=== PATIENT | female | born 1990 | race Caucasian/White ===

== ENCOUNTER 2021-10-31 11:01 | Inpatient (IN) ==
[2021-10-31] MEDS ORDERED: SODIUM CHLORIDE 0.9% 1000ML 2,000 ML IV ONE (11:42)
[2021-10-31] MEDS ORDERED: ONDANSETRON INJ 2 MG/ML 2 ML VIAL IV STA (11:42)
[2021-10-31] MEDS ORDERED: KETOROLAC TROMETHAMINE 15 MG/ML VIAL IV ONE (11:42)
--- NOTE | 2021-10-31 11:44 | Emergency Department Note ---
Impression & Plan Meningitis, Cystitis, Abdominal pain, Headache ED Provider Note NAME: JONATHAN FERNANDEZ AGE: 31 SEX: F : 1990 ARRIVES VIA: Walk-In INFORMANT: Patient ED PROVIDER(S): Kerwin Larson DO CHIEF COMPLAINT: headache HPI: Patient is a 31-year-old female who presents to the ER for not feeling well. She notes her symptoms started about 5 days ago. She has been feeling hot and cold. She notes that she has been having headaches and vomiting. She feels very dizzy. The last time she had some like this she was positive for influenza A. She admits to runny nose but no cough or shortness of breath. No dysuria, urgency, or frequency. Belly pain is diffuse throughout the entire abdomen. Pain is a 10 out of 10. No other exacerbating or remitting factors. Light makes her headache worse. She also notes that she feels off balance when she gets up and moves around. This resolves with rest. ROS: See above HPI for pertinent positives & negatives. A total of 10 systems reviewed and were otherwise negative. PAST MEDICAL HISTORY:See Below PAST SURGICAL HISTORY:See Below FAMILY HISTORY:See Below SOCIAL HISTORY:See Below HOME MEDICATIONS:See Below ALLERGIES:See Below VITALS:See Below PHYSICAL EXAMINATION: GENERAL: Sitting up in bed, alert, disheveled, mild distress holding her head EYE EXAM: normal conjunctiva. PERRL and EOM's grossly intact. OROPHARYNX: no exudate, no erythema, lips, buccal mucosa, and tongue normal and mucous membranes are moist NECK: supple, no nuchal rigidity, no adenopathy, non-tender LUNGS: Clear to auscultation. Normal chest wall mechanics HEART: no murmurs, S1 normal and S2 normal ABDOMEN: abdomen soft, non-tender, normo-active bowel sounds, no masses, no rebound or guarding. BACK: Back is symmetrical on inspection and there is no deformity, no midline tenderness, no CVA tenderness. SKIN: no rashes and no bruising UPPER EXTREMITIES: upper extremities are grossly normal. LOWER EXTREMITIES: No pitting edema. NEURO EXAM: Normal sensorium, cranial nerves II-XII intact, normal speech, no weakness of arms, no weakness of legs. No drift. Finger to nose intact. Gross sensation intact. MEDICAL DECISION MAKING: Patient is a 31-year-old female who presents the ER for fever, headache, feeling dizzy associated with severe belly pain and vomiting. Symptoms have been present for the past 5 days. IV was established blood work was obtained. Labs show no significant leukocytosis or anemia. BMP along with LFTs bilirubin shows slightly elevated glucose at 109 and a T bili elevated at 2. LFTs and lipase are unremarkable. UA was contaminated with multiple epithelial cells with greater than [address] did show some inflammation. Patient was covered with 2 g of Rocephin as well as IV vancomycin and Decadron for possible meningitis. LP was performed by myself at bedside and showed about 70 white cells and elevated protein and I favor that this is likely viral in nature. She was given morphine. Discussed with the hospitalist for further evaluation. Triage Nursing notes reviewed. Limited review of prior medical records performed Vital Signs: reviewed and remarkable for no significant abnormalities Differential diagnosis: Differential Diagnosis includes but is not limited to headache, tension headache, cluster headache, migraine, subarachnoid hemorrhage, meningitis, mass, central venous thrombus, concussion, trauma and epidural/subdural hemorrhage. ER treatment provided: See below Diagnostics interpreted by me: Cardiac Monitoring: An order was placed for continuous cardiac monitoring. The monitor shows a rate of 90 with sinus rhythm. Laboratory studies: As stated above and show below. Imaging studies: CT abdomen pelvis was unremarkable CT head was negative Consultation(s): Discussed with [place] for further evaluation Procedures: none Critical Care: I have personally spent 32 minutes of critical care time in the direct management of this patient. This includes bedside care, interpretation of diagnostic studies, and testing, discussion with consultants, patient, and family members, and other required patient management activities. This 32 minutes is in excess of all separately billable procedures. Past Med/Surg History Social History Smoking Status: Never smoker Preferred Language: Turkish Feels Safe at Home: Yes Home Meds Home Medications Medication Instructions Recorded Confirmed No Known Home Medications 10/31/21 10/31/21 Results & Data (ED) Vital Signs Vital Signs - 24 hr 10/31/21 11:15 10/31/21 13:24 10/31/21 15:22 Temperature 36.9 C 37.7 C H 37.9 C H Temperature Source Temporal Artery Scan Oral Oral Pulse Rate 92 H Pulse Rate [Finger] 74 91 H Pulse Rhythm [Finger] Regular Pulse Strength [Finger] Normal Respiratory Rate 18 21 Respiratory Effort / Characteristics Non-Labored Spontaneous Non-Labored Respiratory Depth Normal Normal Respiratory Pattern Regular Regular Blood Pressure 112/73 Blood Pressure [Right Arm] 110/60 110/60 Blood Pressure Mean 86 Blood Pressure Mean [Right Arm] 76 76 Blood Pressure Position Sitting Blood Pressure Position [Right Arm] Lying Pulse Oximetry 99 97 99 Oxygen Delivery Method Room Air Room Air Room Air Sepsis Recent Fever Within 48 Hours Yes Sepsis New/Unexplained Change in Mental Status No Sepsis Action Taken by Nursing No Action Required Laboratory Data Result diagrams: 10/31/21 12:00 10/31/21 12:00 Lab Results 10/31/21 10/31/21 10/31/21 Range/Units 12:00 12:00 12:05 WBC 8.82 (4.8-10.8) K/ul RBC 4.46 (3.93-5.22) M/uL Hgb 13.0 (12.0-16.0) g/dl POC Hgb (12.0-16.0) g/dl Hct 40.2 (34.1-44.9) % POC Hct (37-47) % MCV 90.1 (80.0-100.0) fL MCH 29.1 (25.0-34.0) pg MCHC 32.3 (32.0-36.0) g/dL RDW Std Deviation 40.9 (36.4-46.3) fL RDW Coeff of Meek 12.5 (11.5-14.5) % Plt Count 155 (130-400) K/uL MPV 11.6 (9.4-12.3) fL Immature Gran % (Auto) 0.3 % Neut % (Auto) 93.7 % Lymph % (Auto) 4.1 % Polk % (Auto) 1.7 % Eos % (Auto) 0.1 % Baso % (Auto) 0.1 % Neut # (Auto) 8.26 H (1.4-6.5) K/uL Lymph # (Auto) 0.36 L (1.2-3.4) K/uL Polk # (Auto) 0.15 L (0.24-0.82) K/uL Eos # (Auto) 0.01 (0-0.50) K/uL Baso # (Auto) 0.01 (0-0.2) K/uL Immature Gran # (Auto) 0.03 H (0.00-0.02) K/uL POC Sodium (135-144) mmol/L Sodium 140 (136-145) mmol/L POC Potassium (3.3-5.0) mmol/L Potassium 3.7 (3.5-5.1) mmol/L POC Chloride (101-112) mmol/L Chloride 105 (98-107) mmol/L Carbon Dioxide 26 (21-32) mmol/L POC Total CO2 (24-31) mmol/L Anion Gap 9 (3-11) POC Anion Gap (16-25) mmol/L POC BUN (7-18) mg/dl BUN 17 (6-23) mg/dl Creatinine 0.69 (0.6-1.2) mg/dl POC Creatinine (0.6-1.3) mg/dl Est Cr Clr Drug Dosing 100.5 ml/min Est GFR ( Amer) 132.6 ml/min Est GFR (Non-Af Amer) 114.4 ml/min BUN/Creatinine Ratio 24.6 H (10-20) Glucose 109 H (70-99(Fasting)) mg/dl POC Glucose (other) (70-99) mg/dl Calcium 9.0 (8.5-10.1) mg/dl POC Ioniz Calcium Erickson (1.12-1.32) mmol/l Total Bilirubin 2.0 H (0.2-1.0) mg/dl AST 17 (13-39) U/L ALT 10 (7-52) U/L Alkaline Phosphatase 39 (34-104) U/L Total Protein 6.7 (6.0-8.3) gm/dl Albumin 4.5 (3.4-5.0) gm/dl Globulin 2.2 L (2.5-4.0) gm/dl Albumin/Globulin Ratio 2.0 (0.9-2) Lipase 17 (11-82) U/L Urine Color Urine Appearance (Clear) Urine pH (4.5-7.5) Ur Specific [place] (1.000-1.030) Urine Protein (Negative) Urine Glucose (UA) (Negative) Urine Ketones (Negative) Urine Blood (Negative) Urine Nitrite (Negative) Urine Bilirubin (Negative) Urine Urobilinogen (Negative) Ur Leukocyte Esterase (Negative) Urine WBC (Auto) (0-5) /hpf Urine RBC (Auto) (0-4) /hpf U Hyaline Cast (Auto) (0-5) /lpf U Epithel Cells (Auto) (0-5) /lpf Urine Bacteria (Auto) (Negative) Ur Renal Epithelial Cell Urine Test (Negative) Fluid Comment CSF Appearance CSF Color Xanthrochromic CSF WBC (0-5) /uL CSF RBC (0-) /uL CSF Cell Count Tube # CSF Mononuclear WBCs % CSF Mononuclear WBCs % % CSF Polynuclear WBCs % % CSF Chemistry Tube # CSF Glucose (40-70) mg/dl CSF Total Protein (15-45) mg/dl SARS-CoV-2, RNA, NAAT NEGATIVE (NEGATIVE) 10/31/21 10/31/21 10/31/21 Range/Units 12:10 12:10 12:11 WBC (4.8-10.8) K/ul RBC (3.93-5.22) M/uL Hgb (12.0-16.0) g/dl POC Hgb 13.6 (12.0-16.0) g/dl Hct (34.1-44.9) % POC Hct 40 (37-47) % MCV (80.0-100.0) fL MCH (25.0-34.0) pg MCHC (32.0-36.0) g/dL RDW Std Deviation (36.4-46.3) fL RDW Coeff of Meek (11.5-14.5) % Plt Count (130-400) K/uL MPV (9.4-12.3) fL Immature Gran % (Auto) % Neut % (Auto) % Lymph % (Auto) % Polk % (Auto) % Eos % (Auto) % Baso % (Auto) % Neut # (Auto) (1.4-6.5) K/uL Lymph # (Auto) (1.2-3.4) K/uL Polk # (Auto) (0.24-0.82) K/uL Eos # (Auto) (0-0.50) K/uL Baso # (Auto) (0-0.2) K/uL Immature Gran # (Auto) (0.00-0.02) K/uL POC Sodium 141 (135-144) mmol/L Sodium (136-145) mmol/L POC Potassium 3.7 (3.3-5.0) mmol/L Potassium (3.5-5.1) mmol/L POC Chloride 103 (101-112) mmol/L Chloride (98-107) mmol/L Carbon Dioxide (21-32) mmol/L POC Total CO2 25 (24-31) mmol/L Anion Gap (3-11) POC Anion Gap 17.0 (16-25) mmol/L POC BUN 16 (7-18) mg/dl BUN (6-23) mg/dl Creatinine (0.6-1.2) mg/dl POC Creatinine 0.8 (0.6-1.3) mg/dl Est Cr Clr Drug Dosing ml/min Est GFR ( Amer) ml/min Est GFR (Non-Af Amer) ml/min BUN/Creatinine Ratio (10-20) Glucose (70-99(Fasting)) mg/dl POC Glucose (other) 117 H (70-99) mg/dl Calcium (8.5-10.1) mg/dl POC Ioniz Calcium Erickson 1.09 L (1.12-1.32) mmol/l Total Bilirubin (0.2-1.0) mg/dl AST (13-39) U/L ALT (7-52) U/L Alkaline Phosphatase (34-104) U/L Total Protein (6.0-8.3) gm/dl Albumin (3.4-5.0) gm/dl Globulin (2.5-4.0) gm/dl Albumin/Globulin Ratio (0.9-2) Lipase (11-82) U/L Urine Color Yellow Urine Appearance Turbid A (Clear) Urine pH 8.5 H (4.5-7.5) Ur Specific [place] 1.020 (1.000-1.030) Urine Protein Negative (Negative) Urine Glucose (UA) Negative (Negative) Urine Ketones 3+ H (Negative) Urine Blood Negative (Negative) Urine Nitrite Negative (Negative) Urine Bilirubin Negative (Negative) Urine Urobilinogen Negative (Negative) Ur Leukocyte Esterase Negative (Negative) Urine WBC (Auto) >30 H (0-5) /hpf Urine RBC (Auto) 0-4 (0-4) /hpf U Hyaline Cast (Auto) 1-5 (0-5) /lpf U Epithel Cells (Auto) 10-20 H (0-5) /lpf Urine Bacteria (Auto) 1+ H (Negative) Ur Renal Epithelial Cell Not Reportable Urine Test Negative (Negative) Fluid Comment CSF Appearance CSF Color Xanthrochromic CSF WBC (0-5) /uL CSF RBC (0-) /uL CSF Cell Count Tube # CSF Mononuclear WBCs % CSF Mononuclear WBCs % % CSF Polynuclear WBCs % % CSF Chemistry Tube # CSF Glucose (40-70) mg/dl CSF Total Protein (15-45) mg/dl SARS-CoV-2, RNA, NAAT (NEGATIVE) 10/31/21 10/31/21 Range/Units 13:58 13:58 WBC (4.8-10.8) K/ul RBC (3.93-5.22) M/uL Hgb (12.0-16.0) g/dl POC Hgb (12.0-16.0) g/dl Hct (34.1-44.9) % POC Hct (37-47) % MCV (80.0-100.0) fL MCH (25.0-34.0) pg MCHC (32.0-36.0) g/dL RDW Std Deviation (36.4-46.3) fL RDW Coeff of Meek (11.5-14.5) % Plt Count (130-400) K/uL MPV (9.4-12.3) fL Immature Gran % (Auto) % Neut % (Auto) % Lymph % (Auto) % Polk % (Auto) % Eos % (Auto) % Baso % (Auto) % Neut # (Auto) (1.4-6.5) K/uL Lymph # (Auto) (1.2-3.4) K/uL Polk # (Auto) (0.24-0.82) K/uL Eos # (Auto) (0-0.50) K/uL Baso # (Auto) (0-0.2) K/uL Immature Gran # (Auto) (0.00-0.02) K/uL POC Sodium (135-144) mmol/L Sodium (136-145) mmol/L POC Potassium (3.3-5.0) mmol/L Potassium (3.5-5.1) mmol/L POC Chloride (101-112) mmol/L Chloride (98-107) mmol/L Carbon Dioxide (21-32) mmol/L POC Total CO2 (24-31) mmol/L Anion Gap (3-11) POC Anion Gap (16-25) mmol/L POC BUN (7-18) mg/dl BUN (6-23) mg/dl Creatinine (0.6-1.2) mg/dl POC Creatinine (0.6-1.3) mg/dl Est Cr Clr Drug Dosing ml/min Est GFR ( Amer) ml/min Est GFR (Non-Af Amer) ml/min BUN/Creatinine Ratio (10-20) Glucose (70-99(Fasting)) mg/dl POC Glucose (other) (70-99) mg/dl Calcium (8.5-10.1) mg/dl POC Ioniz Calcium Erickson (1.12-1.32) mmol/l Total Bilirubin (0.2-1.0) mg/dl AST (13-39) U/L ALT (7-52) U/L Alkaline Phosphatase (34-104) U/L Total Protein (6.0-8.3) gm/dl Albumin (3.4-5.0) gm/dl Globulin (2.5-4.0) gm/dl Albumin/Globulin Ratio (0.9-2) Lipase (11-82) U/L Urine Color Urine Appearance (Clear) Urine pH (4.5-7.5) Ur Specific [place] (1.000-1.030) Urine Protein (Negative) Urine Glucose (UA) (Negative) Urine Ketones (Negative) Urine Blood (Negative) Urine Nitrite (Negative) Urine Bilirubin (Negative) Urine Urobilinogen (Negative) Ur Leukocyte Esterase (Negative) Urine WBC (Auto) (0-5) /hpf Urine RBC (Auto) (0-4) /hpf U Hyaline Cast (Auto) (0-5) /lpf U Epithel Cells (Auto) (0-5) /lpf Urine Bacteria (Auto) (Negative) Ur Renal Epithelial Cell Urine Test (Negative) Fluid Comment CSF Appearance Clear CSF Color Colorless Xanthrochromic No xanthochromia CSF WBC 67 H* (0-5) /uL CSF RBC 0 (0-) /uL CSF Cell Count Tube # 3 CSF Mononuclear WBCs 100.0 % CSF Mononuclear WBCs % % CSF Polynuclear WBCs % % CSF Chemistry Tube # 1 CSF Glucose 54 (40-70) mg/dl CSF Total Protein 102.7 H (15-45) mg/dl SARS-CoV-2, RNA, NAAT (NEGATIVE) Administered Medications Discontinued Medications Dexamethasone Sodium Phosphate (DexamethasonePf 10 Mg/Ml Vial) 10 mg IV NOW ONE Stop: 10/31/21 14:59 Last Admin: 10/31/21 15:27 Dose: 10 mg Documented By: KATELYN Sodium Chloride (Nss 1000ml) 2,000 mls @ 999 mls/hr IV .Q2H1M ONE Stop: 10/31/21 13:42 Last Infusion: 10/31/21 14:11 Dose: 0 mls/hr Documented By: Admin: 10/31/21 12:16 Dose: 999 mls/hr Documented By: CLYDE Ceftriaxone Sodium (Rocephin) 2,000 mg in 70 mls @ 140 mls/hr IV NOW STA Stop: 10/31/21 14:43 Last Infusion: 10/31/21 15:37 Dose: 0 mls/hr Documented By: Admin: 10/31/21 14:38 Dose: 140 mls/hr Documented By: CLYDE Ioversol (Optiray 300 100ml) 95 ml IV ONCE ONE Stop: 10/31/21 12:49 Last Admin: 10/31/21 12:48 Dose: 95 ml Documented By: JORGE ALBERTO Ketorolac Tromethamine (Ketorolac Tromethamine 15 Mg/Ml Vial) 15 mg IV NOW ONE Stop: 10/31/21 11:43 Last Admin: 10/31/21 12:15 Dose: 15 mg Documented By: CLYDE Lidocaine HCl (Lidocaine 1% Local 20 Ml Vial) Confirm Administered Dose 20 ml .ROUTE .STK-MED ONE Stop: 10/31/21 13:53 Last Admin: 10/31/21 13:55 Dose: 20 ml Documented By: CLYDE Morphine Sulfate (Morphine Sulfate 4 Mg/Ml 1 Ml Carp\Vial) 4 mg IV NOW STA Stop: 10/31/21 14:59 Last Admin: 10/31/21 15:27 Dose: 4 mg Documented By: KATELYN Ondansetron HCl (Ondansetron Inj 2 Mg/Ml 2 Ml Vial) 4 mg IV NOW STA Stop: 10/31/21 11:43 Last Admin: 10/31/21 12:15 Dose: 4 mg Documented By: KTS Imaging Data Radiologist's Impression: Head CT 10/31/21 11:[address] DOSE: HISTORY: Headache. TECHNIQUE: Multiaxial CT images of the head were performed without the use of intravenous contrast. Automated exposure control was utilized for this study. A dose lowering technique was utilized adhering to the principles of ALARA. Comparison: None. Findings: The paranasal sinuses and mastoid air cells are clear. The calvarium and skull base are intact. The ventricles and sulci are within normal limits. There is no mass, hematoma, midline shift, or acute infarct. Impression: No acute intracranial abnormality. ACT 112: Negative or not required by law. Electronically signed by: Dillon Mandujano M.D. 10/31/2021 12:58 PM Abdomen/Pelvis CT 10/31/21 11:[address] WITH IV CONTRAST CT DOSE: 1072.12 mGy.cm HISTORY: Acute lower abdominal pain lower abd pain TECHNIQUE: Multiaxial CT images of the abdomen and pelvis were performed following the IV administration of 95 cc of Optiray, A dose lowering technique was utilized adhering to the principles of ALARA. COMPARISON STUDY: None. FINDINGS: Nonspecific subcarinal and bilateral hilar adenopathy with lymph nodes measuring up to 10 to 11 mm in short axis. The lung bases are generally clear. No pneumatosis or pneumoperitoneum. Unremarkable spleen, pancreas, contracted gallbladder and adrenal glands. Periportal edema is likely secondary to overhydration. There is patency of the hepatic and portal veins. The liver is within normal limits. Symmetric enhancement of the kidneys. No hydronephrosis. 1.1 cm cyst within the superior pole right kidney. No hydronephrosis. Circumferential urinary bladder wall thickening with partial distention. Unremarkable uterus. Follicular changes of the ovaries. Aorta and IVC are unremarkable. No lymphadenopathy identified. No bowel obstruction. Mild colonic fecal retention. Partial distention with wall thickening involves the majority of the large bowel. Noninflamed appendix. Unremarkable soft tissues. No acute fracture. IMPRESSION: 1. No bowel obstruction or pneumoperitoneum. 2. Normal appendix. 3. Mild wall thickening throughout the majority of the colon is likely secondary to partial distention. A mild nonspecific colitis is considered less likely. 4. Urinary bladder wall thickening with partial distention. Correlate with urinalysis. 5. Nonspecific mild mediastinal and bilateral hilar lymphadenopathy. ACT 112: Negative or not required by law. The above report was generated using voice recognition software. It may contain grammatical, syntax or spelling errors. Electronically signed by: Arvin Brink M.D. 10/31/2021 1:47 PM Chest X-Ray 10/31/21 13:57 XR chest 1V portable CLINICAL HISTORY: weak TECHNIQUE: Single frontal radiograph of the chest was obtained. Comparison: None available at the time of this dictation. FINDINGS: No lines and tubes are seen. The cardiomediastinal silhouette is normal. The lungs are clear. No evidence of pleural effusion or pneumothorax. IMPRESSION: No acute chest disease. ACT 112: Negative or not required by law. Electronically signed by: Aníbal Pierce M.D. 10/31/2021 2:18 PM Discharge Plan Visit Data Chief Complaint: Illness Stated Complaint: PUKING, DIZZY, CANT WALK, HEADACHE ED Provider: Kerwin Larson Discharge Problem: Meningitis, Cystitis, Abdominal pain, Headache Forms Stand Alone Forms: [employer] Prescriptions Prescriptions: No Action No Known Home Medications Referrals Referrals: PCP,NO [Primary Care Provider] -
[2021-10-31 12:23] LABS: iSTAT Creatinine 0.8 mg/dl (0.6-1.3); iSTAT Hemoglobin 13.6 g/dl (12.0-16.0); iSTAT Ionized Calcium 1.09 mmol/l (1.12-1.32); iSTAT Potassium 3.7 mmol/L (3.3-5.0)
[2021-10-31 12:31] LABS: Hematocrit (blood only) 40.2 % (34.1-44.9); Mean Corpuscular Hemoglobin 29.1 pg (25.0-34.0); Mean Corpuscular Hgb Conc 32.3 g/dL (32.0-36.0); Mean Corpuscular Volume 90.1 fL (80.0-100.0); Mean Platelet Volume 11.6 fL (9.4-12.3); Platelet Count 155 K/uL (130-400); RDW Coefficient of Variation 12.5 % (11.5-14.5); RDW Standard Deviation 40.9 fL (36.4-46.3); Red Blood Count 4.46 M/uL (3.93-5.22); White Blood Count 8.82 K/ul (4.8-10.8)
[2021-10-31 12:47] LABS: Appearance Urine Turbid (Clear); Bacteria Urine Automated 1+ (Negative); Bilirubin Urine Negative (Negative); Blood Urine Negative (Negative); Color Urine Yellow; Glucose Urine UA Negative (Negative); Ketones Urine 3+ (Negative); Leukocyte Esterase Urine Negative (Negative); Nitrite Urine Negative (Negative); Protein Urine Negative (Negative); RBC Urine Automated 0-4 /hpf (0-4); Urobilinogen Urine Negative (Negative); pH Urine 8.5 (4.5-7.5)
[2021-10-31] MEDS ORDERED: OPTIRAY 300 100mL IV ONE (12:48)
[2021-10-31 12:58] LABS: Basophils # (auto) 0.01 K/uL (0-0.2); Basophils % (auto) 0.1 %; Eosinophils # (auto) 0.01 K/uL (0-0.50); Eosinophils % (auto) 0.1 %; Immature Granulocytes # (auto) 0.03 K/uL (0.00-0.02); Immature Granulocytes % (auto) 0.3 %; Lymphocytes # (auto) 0.36 K/uL (1.2-3.4); Lymphocytes % (auto) 4.1 %; Monocytes # (auto) 0.15 K/uL (0.24-0.82); Monocytes % (auto) 1.7 %; Neutrophils # (auto) 8.26 K/uL (1.4-6.5); Neutrophils % (auto) 93.7 %
--- NOTE | 2021-10-31 13:00 | CT Scan Report ---
HEAD CT NONCONTRAST CT DOSE: HISTORY: Headache. TECHNIQUE: Multiaxial CT images of the head were performed without the use of intravenous contrast. A utomated exposure control was utilized for this study. A dose lowering technique was utilized adheri ng to the principles of ALARA. Comparison: None. Findings: The paranasal sinuses and mastoid air cells are clear. The calvarium and skull base are int act. The ventricles and sulci are within normal limits. There is no mass, hematoma, midline shift, or acute infarct. Impression: No acute intracranial abnormality. ACT 112: Negative or not required by law. Electronically signed by: Dillon Mandujano M.D. 10/31/2021 12:58 PM
[2021-10-31 13:05] LABS: Albumin Level 4.5 gm/dl (3.4-5.0); BUN Creatinine Ratio 24.6 (10-20); Creatinine Clr Calc Pharmacy 100.5 ml/min; Est GFR (African American) 132.6 ml/min; Est GFR (Non-African American) 114.4 ml/min; Globulin 2.2 gm/dl (2.5-4.0); Potassium 3.7 mmol/L (3.5-5.1); Total Protein 6.7 gm/dl (6.0-8.3)
[2021-10-31 13:16] LABS: WBC Urine Automated >30 /hpf (0-5)
[2021-10-31 13:31] LABS: Pregnancy Test, Urine Negative (Negative)
--- NOTE | 2021-10-31 13:49 | CT Scan Report ---
ABDOMEN AND PELVIS CT WITH IV CONTRAST CT DOSE: 1072.12 mGy.cm HISTORY: Acute lower abdominal pain lower abd pain TECHNIQUE: Multiaxial CT images of the abdomen and pelvis were performed following the IV administrat ion of 95 cc of Optiray, A dose lowering technique was utilized adhering to the principles of ALARA. COMPARISON STUDY: None. FINDINGS: Nonspecific subcarinal and bilateral hilar adenopathy with lymph nodes measuring up to 10 t o 11 mm in short axis. The lung bases are generally clear. No pneumatosis or pneumoperitoneum. Unremarkable spleen, pancreas, contracted gallbladder and adrenal glands. Periportal edema is likely secondary to overhydration. There is patency of the hepatic and portal veins. The liver is within nor mal limits. Symmetric enhancement of the kidneys. No hydronephrosis. 1.1 cm cyst within the superior pole right k idney. No hydronephrosis. Circumferential urinary bladder wall thickening with partial distention. Un remarkable uterus. Follicular changes of the ovaries. Aorta and IVC are unremarkable. No lymphadenopa thy identified. No bowel obstruction. Mild colonic fecal retention. Partial distention with wall thickening involves the majority of the large bowel. Noninflamed appendix. Unremarkable soft tissues. No acute fracture. IMPRESSION: 1. No bowel obstruction or pneumoperitoneum. 2. Normal appendix. 3. Mild wall thickening throughout the majority of the colon is likely secondary to partial distentio n. A mild nonspecific colitis is considered less likely. 4. Urinary bladder wall thickening with partial distention. Correlate with urinalysis. 5. Nonspecific mild mediastinal and bilateral hilar lymphadenopathy. ACT 112: Negative or not required by law. The above report was generated using voice recognition software. It may contain grammatical, syntax o r spelling errors. Electronically signed by: Arvin Brink M.D. 10/31/2021 1:47 PM
[2021-10-31] MEDS ORDERED: LIDOCAINE 1% LOCAL 20 ML VIAL ONE (13:52)
[2021-10-31] MEDS ORDERED: cefTRIAXone SODIUM 2,000 MG/70 ML BAG IV STA (14:14)
--- NOTE | 2021-10-31 14:19 | XRay Report ---
XR chest 1V portable CLINICAL HISTORY: weak TECHNIQUE: Single frontal radiograph of the chest was obtained. Comparison: None available at the time of this dictation. FINDINGS: No lines and tubes are seen. The cardiomediastinal silhouette is normal. The lungs are clear. No evid ence of pleural effusion or pneumothorax. IMPRESSION: No acute chest disease. ACT 112: Negative or not required by law. Electronically signed by: Aníbal Pierce M.D. 10/31/2021 2:18 PM
[2021-10-31 14:46] LABS: Total Protein CSF 102.7 mg/dl (15-45)
[2021-10-31] MEDS ORDERED: dexAMETHasone**PF** 10 MG/ML VIAL IV ONE (14:58)
[2021-10-31] MEDS ORDERED: MoRPHine SULFATE 4 MG/ML 1 ML CARP\\VIAL IV STA (14:58)
[2021-10-31] MEDS ORDERED: VANCOMYCIN HCL 1,750 MG in SODIUM CHLORIDE 0.9% 500 ML IV ONE (15:04)
[2021-10-31] MEDS ORDERED: VANCOMYCIN CONSULT ACTIVE PRN (15:04)
[2021-10-31 15:14] LABS: Appearance CSF Clear; CSF Count Tube # 3; CSF Xanthrochromic No xanthochromia; Color CSF Colorless; Red Blood Cell CSF (A) 0 /uL (0-); White Blood Cell CSF (A) 67 /uL (0-5)
--- NOTE | 2021-10-31 15:28 | History & Physical Report ---
Date of Service October 31, 2021 Assessment & Plan (1) Meningitis: Plan: Acute meningitis, suspected viral No leukocytosis.. Temperature 37.7 on admission -CXR: No acute findings -CTA/P: 1. No bowel obstruction or pneumoperitoneum.2. Normal appendix.3. Mild wall thickening throughout the majority of the colon is likely secondary to partial distention. A mild nonspecific colitis is considered less likely.4. Urinary bladder wall thickening with partial distention. Correlate with urinalysis.5. Nonspecific- -mild mediastinal and bilateral hilar lymphadenopathy. -CThead: No acute intracranial abnormality Hemoglobin normal No electrolyte abnormalities LP performed in ER. Total protein elevated to 102, white blood cell count elevated to 67, PCR panel and Lyme test is pending LP culture pending COVID negative Received Rocephin, Decadron, Toradol, vancomycin in ER Continue empiric Rocephin/Vanco pending final CSF analysis/culture and Lyme resultsadmit to PCU Given likely viral etiology, and severe symptoms empiric 10 mpk acyclovir every 8 hours started, narrow based on culture/PCR results Dexamethasone was given with initial antibiotics. We will continue 10 mg every 6 hours, if culture data or PCR reveals nonbacterial/pneumococcal etiology discontinue at that time UTI Cystitis noted on CT above. Urine infected appearing with 1+ bacteria and WBC Empirically covered with Rocephin above, follow UC COVID - Negative on admit, son is positive - PUI. Needs 5 days of isolation then retesting on 11/04/21 for removal of precautions Denies other chronic medical problems DVT prophylaxis: SCDs, defer pharmacal prophylaxis following LP Diet: Regular Disposition: PCU for meningitis monitoring/neurochecks CODE STATUS: Full code. Patient would like her boyfriend Jeyson contacted first in the case of an emergency (2) Cystitis: History of Present Illness Primary Care Provider: NO PCP Roseanne Preston is a 31-year-old female with no past medical history who presents to the ER with 5 days of sweats, headache, vomiting, dizziness, and photosensitive headache. LP has elevated protein and white blood cell count consistent with meningitis, glucose is normal. 5-6 days. Feeling generally poor. Sweats, headache, vomiting, decreased appetite, light sensitivity, and no energy. Headache if in the front, sides, and behind her eyes and has been 10/10 the last two fevers. +Fevers, chills. no sweats. No chest pain, no chest pressure, no shortness of breath, no cough. Does have a history of cold sores of the mouth, never been on an antiviral medicine before but isn't sure. Denies focal neurologic symptoms, focal weakness, numbness/tingling and sensory change. Feels very tired and would like to close her eyes and go back to sleep. No tick bites to her knowledge. Some mosquito bites outside her home. No rashes. Her son tested positive for COVID at home 1 week ago. Works at [employer] in [place], sees many customers who don't wear masks. Daily meds: claritin PRN Denies chronic medical problems Medical History: Reviewed Medications: Reviewed Surgical History: Reviewed Allergies: Reviewed. Augmentin and PCN, nausea/vomiting and throat swellin ga sa child. Social History: Smokes cigarettes, 1 pack lasts 1 day with her boyfriend sharing in the last year. rare social beer or glass of wine. Code Status: Full Code. Surrogate DM woud be boyfriend jeyson per patient. Home Medications Medication Instructions Recorded Confirmed Type No Known Home Medications 10/31/21 10/31/21 History Past Med/Surg History Social History Smoking Status: Never smoker Preferred Language: French Feels Safe at Home: Yes Review of Systems Review of Systems: All systems reviewed & are unremarkable except as noted in Subjective Physical Exam Physical Exam: General: A&Ox3. NAD. Cooperative. Skin is warm and moist. Appears ill but nontoxic HEENT: Atraumatic, normocephalic. Patient and hearing intact, pulls equal and reactive to light photosensitive Pulm: CTAB A&P. -wheezes, -rales, -rhonchi. Symmetrical chest rise. No increase in work of breathing. No respiratory distress. Cardiac: RRR, -mrg. Radial pulses intact and symmetrical. Abdominal: Nontender, nondistended, soft. BS present. Extremities: Sensation of soft touch intact in hands and feet bilaterally without asymmetry, putty remover strength and ankle dorsiflexion/plantarflexion is intact. Neck flexion does exacerbate headache behind her eyes. Results & Data Results & Data ([facility]) Vital Signs (Past 12 Hours) Vital Signs Temp Pulse Pulse Resp BP BP Pulse Ox 10/31/21 13:24 37.7 C H 74 110/60 97 10/31/21 11:15 36.9 C 92 H 18 112/73 99 O2 Del Method 10/31/21 13:24 Room Air 10/31/21 11:15 Room Air PG Care Time/CCT Total # of Minutes Spent Total Time Spent with Patient: Total time spent is greater than 50% in coordination of care (as documented) at patient's floor/unit and/or counseling patient: Coding Level of Care Code 98676 Initial Inpt Care Lvl 3 Diagnoses Meningitis G03.9 Cystitis N30.90
[2021-10-31 15:54] LABS: Cryptococcus neoformans/ga PCR Not Detected (NotDetected); Cytomegalovirus PCR Not Detected (NotDetected); Enterovirus PCR Not Detected (NotDetected); Escherichia coli K1 PCR Not Detected (NotDetected); Haemophilius influenzae PCR Not Detected (NotDetected); Herpes Simplex Virus 1 PCR Not Detected (NotDetected); Herpes Simplex Virus 2 PCR Not Detected (NotDetected); Human Herpes Virus 6 PCR Not Detected (NotDetected); Human Parechovirus PCR Not Detected (NotDetected); Listeria monocytogenes PCR Not Detected (NotDetected); Neisseria meningitidis PCR Not Detected (NotDetected); Streptococcus agalactiae PCR Not Detected (NotDetected); Streptococcus pneumoniae PCR Not Detected (NotDetected); Varicella Zoster Virus PCR Not Detected (NotDetected)
[2021-10-31 15:59] LABS: Lyme Ab IgG w/WB Rflx Negative (Negative)
[2021-10-31 16:06] LABS: Lyme Ab IgM w/WB Rflx Equivocal (Negative)
[2021-10-31] MEDS ORDERED: HYDROmorphone INJ 0.5 MG/0.5 ML SYR IV PRN (16:50)
[2021-10-31] MEDS ORDERED: POLYETHYLENE (MIRALAX) 17 GM PACK PO PRN (16:50)
[2021-10-31] MEDS: NSS + 20MEQ KCL 20 MEQ/1,000 ML BAG IV SCH (18:35)
[2021-10-31] MEDS: ACYCLOVIR SOD 700 MG in DEXTROSE 5% 100 ML IV SCH (19:33)
[2021-10-31] MEDS: ACETAMINOPHEN 325 MG TAB PO PRN (21:21)
[2021-11-01] MEDS: ACYCLOVIR SOD 700 MG in DEXTROSE 5% 100 ML IV SCH ×3 (01:46→17:29)
[2021-11-01] MEDS: cefTRIAXone SODIUM 2,000 MG in DEXTROSE 5% 50 ML IV SCH ×2 (02:58→13:24)
[2021-11-01] MEDS: NSS + 20MEQ KCL 20 MEQ/1,000 ML BAG IV SCH (07:40)
[2021-11-01 07:49] LABS: Basophils # (auto) 0.01 K/uL (0-0.2); Basophils % (auto) 0.1 %; Hematocrit (blood only) 37.7 % (34.1-44.9); Hemoglobin 12.3 g/dl (12.0-16.0); Immature Granulocytes # (auto) 0.04 K/uL (0.00-0.02); Immature Granulocytes % (auto) 0.5 %; Lymphocytes # (auto) 0.89 K/uL (1.2-3.4); Lymphocytes % (auto) 10.1 %; Mean Corpuscular Hemoglobin 29.5 pg (25.0-34.0); Mean Corpuscular Hgb Conc 32.6 g/dL (32.0-36.0); Mean Corpuscular Volume 90.4 fL (80.0-100.0); Mean Platelet Volume 11.4 fL (9.4-12.3); Monocytes # (auto) 0.36 K/uL (0.24-0.82); Monocytes % (auto) 4.1 %; Neutrophils # (auto) 7.55 K/uL (1.4-6.5); Neutrophils % (auto) 85.2 %; Platelet Count 151 K/uL (130-400); RDW Coefficient of Variation 12.6 % (11.5-14.5); RDW Standard Deviation 41.1 fL (36.4-46.3); Red Blood Count 4.17 M/uL (3.93-5.22); White Blood Count 8.85 K/ul (4.8-10.8)
[2021-11-01 08:23] LABS: BUN Creatinine Ratio 18.2 (10-20); Calcium 8.4 mg/dl (8.5-10.1); Creatinine Clr Calc Pharmacy 105.1 ml/min; Est GFR (African American) 134.5 ml/min; Est GFR (Non-African American) 116.1 ml/min; Potassium 4.5 mmol/L (3.5-5.1)
[2021-11-01] MEDS: ACETAMINOPHEN 325 MG TAB PO PRN (12:21)
--- NOTE | 2021-11-01 12:54 | Hospitalist Progress Note ---
Date of Service November 01, 2021 Assessment & Plan (1) Meningitis: Plan: Acute meningitis, suspected viral No leukocytosis.. Temperature 37.7 on admission -CXR: No acute findings -CTA/P: 1. No bowel obstruction or pneumoperitoneum.2. Normal appendix.3. Mild wall thickening throughout the majority of the colon is likely secondary to partial distention. A mild nonspecific colitis is considered less likely.4. Urinary bladder wall thickening with partial distention. Correlate with urinalysis.5. Nonspecific- -mild mediastinal and bilateral hilar lymphadenopathy. -CThead: No acute intracranial abnormality Hemoglobin normal No electrolyte abnormalities LP performed in ER. Total protein elevated to 102, white blood cell count elevated to 67, PCR panel and Lyme test is equivocal LP culture pending COVID negative Received Rocephin, Decadron, Toradol, vancomycin in ER Suspected viral meningitis (PCR negative for HSV1+2). However difficult to know what to do with equivocal Lyme test. We will continue ceftriaxone 2 g IV every 12 hourly pending ID consult. COVID - Negative on admit, son is positive - PUI. Needs 5 days of isolation then retesting on 11/04/21 for removal of precautions - family unable to visit hospital for 21 days Denies other chronic medical problems DVT prophylaxis: SCD, low risk Diet: Regular Disposition: PCU for meningitis monitoring/neurochecks CODE STATUS: Full code. Patient would like her boyfriend Johan contacted first in the case of an emergency (2) Cystitis: Plan: Ruled out. No suprapubic pain or urinary symptoms. Urine culture pending but suspect asymptomatic bacteriuria or contaminated sample. Admission and Anticipated Discharge Date Admission Date: October 31, 2021 Subjective Patient reportedly much improved since admission. She reports having 1 week of symptoms with reduced appetite, headache and r educed balance. Current headache severity 2 out of 10. Improved with Tylenol. It was initially in the back of her head but now down her neck. Severe light sensitivity which appears much better today. She denies any urinary symptoms or upper respiratory tract infection symptoms. No abdominal pain. No known tick bites. Updated her boyfriend Johan over the phone as requested. Review of Systems Review of Systems: All systems reviewed & are unremarkable except as noted in Subjective Physical Exam Constitutional: WD/WN, vitals as above Eyes: PERRL, conjunctivae normal, anicteric sclerae ENMT: external ear and nose normal, oropharynx normal Neck: trachea midline, no thyromegaly Respiratory: normal respiratory effort, lungs clear to auscultation Cardiovascular: RRR, no murmur, no edema Gastrointestinal (Abdomen): normal bowel sounds, soft, nontender, no hep atosplenomegaly Musculoskeletal: no cyanosis or clubbing, extremities motor strength 5/5 Skin: no rashes, warm and dry Neurologic: moves all extremities and awake; no focal motor deficits and not confused Speech / Cognition: normal speech Motor/Sensory: no tremor and no sensory deficit Cranial Nerves: EOM intact bilaterally, normal facial strength and able to rotate head bilaterally Brudzinski sign negative for hip and knee flexion Psychiatric: A+Ox3, euthymic affect Genitourinary: no CVA tenderness Results & Data Results & Data ([facility]) Vital Signs (Past 12 Hours) Vital Signs Temp Pulse Resp BP Pulse Ox O2 Del Method 11/01/21 11:53 36.9 C 60 20 105/68 95 Room Air 11/01/21 07:41 36.8 C 55 L 16 94/62 L 95 11/01/21 04:25 36.4 C L 56 L 18 85/43 L 94 PG Care Time/CCT Total # of Minutes Spent Total Time Spent with Patient: Total time spent is greater than 50% in coordination of care (as documented) at patient's floor/unit and/or counseling patient: Coding Level of Care Code 30406 Subseq Hosp Care Lvl 2 Diagnoses Meningitis G03.9 Cystitis N30.90
[2021-11-02] MEDS: cefTRIAXone SODIUM 2,000 MG in DEXTROSE 5% 50 ML IV SCH ×2 (02:17→15:52)
[2021-11-02] MEDS: ACYCLOVIR SOD 700 MG in DEXTROSE 5% 100 ML IV SCH ×2 (02:47→09:33)
[2021-11-02 06:31] LABS: Basophils # (auto) 0.01 K/uL (0-0.2); Basophils % (auto) 0.2 %; Eosinophils # (auto) 0.05 K/uL (0-0.50); Eosinophils % (auto) 1.1 %; Hematocrit (blood only) 35.4 % (34.1-44.9); Hemoglobin 11.6 g/dl (12.0-16.0); Immature Granulocytes # (auto) 0.02 K/uL (0.00-0.02); Immature Granulocytes % (auto) 0.4 %; Lymphocytes # (auto) 1.29 K/uL (1.2-3.4); Lymphocytes % (auto) 27.4 %; Mean Corpuscular Hemoglobin 29.6 pg (25.0-34.0); Mean Corpuscular Hgb Conc 32.8 g/dL (32.0-36.0); Mean Corpuscular Volume 90.3 fL (80.0-100.0); Monocytes # (auto) 0.33 K/uL (0.24-0.82); Neutrophils % (auto) 63.9 %; Platelet Count 139 K/uL (130-400); RDW Coefficient of Variation 12.7 % (11.5-14.5); RDW Standard Deviation 41.8 fL (36.4-46.3); Red Blood Count 3.92 M/uL (3.93-5.22)
[2021-11-02 07:09] LABS: Albumin Globulin Ratio 1.8 (0.9-2); Albumin Level 3.3 gm/dl (3.4-5.0); BUN Creatinine Ratio 16.2 (10-20); Bilirubin,Total 0.6 mg/dl (0.2-1.0); Calcium 8.1 mg/dl (8.5-10.1); Creatinine Clr Calc Pharmacy 93.1 ml/min; Est GFR (African American) 123.4 ml/min; Est GFR (Non-African American) 106.4 ml/min; Globulin 1.8 gm/dl (2.5-4.0); Potassium 3.7 mmol/L (3.5-5.1); Total Protein 5.1 gm/dl (6.0-8.3)
[2021-11-02] MEDS ORDERED: ONDANSETRON INJ 2 MG/ML 2 ML VIAL IV PRN (09:10)
[2021-11-02] MEDS: ACETAMINOPHEN 325 MG TAB PO PRN (09:20)
--- NOTE | 2021-11-02 16:04 | Electrocardiogram Report ---
Test Reason : Blood Pressure : / mmHG Vent. Rate : 062 BPM Atrial Rate : 062 BPM P-R Int : 120 ms QRS Dur : 068 ms QT Int : 394 ms P-R-T Axes : 047 039 035 degrees QTc Int : 399 ms Normal sinus rhythm Normal ECG No previous ECGs available Confirmed by Derek Faust ([id number]) on 11/02/2021 4:03:24 PM Referred By: REFERRED SELF Confirmed By:Derek Faust
--- NOTE | 2021-11-02 22:56 | Hospitalist Progress Note ---
Date of Service November 02, 2021 Assessment & Plan (1) Meningitis: Plan: Acute meningitis, discussed with infectious disease; suspected viral, unable to rule out lyme therefore will continue ceftriaxone pending western blot confirmation testing - No leukocytosis.. Temperature 37.7 on admission - CXR: No acute findings - CTA/P: 1. No bowel obstruction or pneumoperitoneum.2. Normal appendix.3. Mild wall thickening throughout the majority of the colon is likely secondary to partial distention. A mild nonspecific colitis is considered less likely.4. Urinary bladder wall thickening with partial distention. Correlate with urinalysis.5. Nonspecific- -mild mediastinal and bilateral hilar lymphadenopathy. - CThead: No acute intracranial abnormality Hemoglobin normal No electrolyte abnormalities LP performed in ER. Total protein elevated to 102, white blood cell count elevated to 67, PCR panel and Lyme test is equivocal LP culture negative COVID negative Received Rocephin, Decadron, Toradol, vancomycin in ER Suspected viral meningitis (PCR negative for HSV1+2 and CMV - can discontinue acyclovir). - suspected worse headache due to acyclovir (known side effect of this medication) COVID exposure - Negative on admit, son is positive - PUI. Needs 5 days of isolation then retesting on 11/04/21 for removal of precautions - family unable to visit hospital for 21 days Denies other chronic medical problems DVT prophylaxis: SCD, low risk Diet: Regular Disposition: stable for downgrade to med/surg CODE STATUS: Full code. Patient would like her boyfriend Johan contacted first in the case of an emergency (2) Cystitis: Plan: Ruled out. No suprapubic pain or urinary symptoms. Urine culture pending but suspect asymptomatic bacteriuria or contaminated sample. Admission and Anticipated Discharge Date Admission Date: October 31, 2021 Subjective Patient reports right sided headache, constant, started after acyclovir today. Nausea after dilaudid given, improved after ondansetron. No new neurological complaints other than new onset headache. No neck pain or stiffness Review of Systems Review of Systems: All systems reviewed & are unremarkable except as noted in Subjective Physical Exam Constitutional: WD/WN, vitals as above Eyes: PERRL, conjunctivae normal, anicteric sclerae ENMT: external ear and nose normal, oropharynx normal Neck: trachea midline, no thyromegaly Respiratory: normal respiratory effort, lungs clear to auscultation Cardiovascular: RRR, no murmur, no edema Gastrointestinal (Abdomen): normal bowel sounds, soft, nontender, no hepatosplenomegaly Musculoskeletal: no cyanosis or clubbing, extremities motor strength 5/5 Skin: no rashes, warm and dry Neurologic: moves all extremities and awake; no focal motor deficits and not confused Speech / Cognition: normal speech Motor/Sensory: no tremor and no sensory deficit Cranial Nerves: EOM intact bilaterally, normal facial strength and able to rotate head bilaterally Pain over right temporal region of head Psychiatric: A+Ox3, euthymic affect Genitourinary: no CVA tenderness Results & Data Results & Data ([facility]) Vital Signs (Past 12 Hours) Vital Signs Temp Pulse Resp BP Pulse Ox Pulse Ox O2 Del Method 11/02/21 19:22 36.9 C 82 16 94/56 L 96 Room Air 11/02/21 16:00 97 11/02/21 15:37 36.9 C 66 16 95/63 L 96 Room Air O2 Del Method 11/02/21 19:22 11/02/21 16:00 Room Air 11/02/21 15:37 PG Care Time/CCT Total # of Minutes Spent Total Time Spent with Patient: Total time spent is greater than 50% in coordination of care (as documented) at patient's floor/unit and/or counseling patient: Coding Level of Care Code 46613 Subseq Hosp Care Lvl 2 Diagnoses Meningitis G03.9 Cystitis N30.90
[2021-11-02] MEDS ORDERED: SODIUM CHLORIDE 0.9% 1000ML 1,000 ML IV STA (23:22)
[2021-11-03] MEDS: cefTRIAXone SODIUM 2,000 MG in DEXTROSE 5% 50 ML IV SCH ×2 (01:53→14:15)
--- NOTE | 2021-11-03 03:42 | Communication Note ---
Date of Service: November 03, 2021 soft bp. provided 1L NSS bolus w/ improvement
[2021-11-03 09:17] LABS: Basophils # (auto) 0.02 K/uL (0-0.2); Basophils % (auto) 0.5 %; Eosinophils # (auto) 0.09 K/uL (0-0.50); Eosinophils % (auto) 2.1 %; Hematocrit (blood only) 35.8 % (34.1-44.9); Hemoglobin 11.7 g/dl (12.0-16.0); Immature Granulocytes # (auto) 0.02 K/uL (0.00-0.02); Immature Granulocytes % (auto) 0.5 %; Lymphocytes # (auto) 1.12 K/uL (1.2-3.4); Lymphocytes % (auto) 25.7 %; Mean Platelet Volume 12.2 fL (9.4-12.3); Monocytes # (auto) 0.29 K/uL (0.24-0.82); Monocytes % (auto) 6.7 %; Neutrophils # (auto) 2.81 K/uL (1.4-6.5); Neutrophils % (auto) 64.5 %; Platelet Count 125 K/uL (130-400); White Blood Count 4.35 K/ul (4.8-10.8)
[2021-11-03 09:37] LABS: Mean Corpuscular Hemoglobin 29.5 pg (25.0-34.0); Mean Corpuscular Hgb Conc 32.7 g/dL (32.0-36.0); Mean Corpuscular Volume 90.2 fL (80.0-100.0); RDW Coefficient of Variation 12.6 % (11.5-14.5); RDW Standard Deviation 41.5 fL (36.4-46.3); Red Blood Count 3.97 M/uL (3.93-5.22)
[2021-11-03 09:48] LABS: BUN Creatinine Ratio 10.6 (10-20); Calcium 8.2 mg/dl (8.5-10.1); Creatinine Clr Calc Pharmacy 104.3 ml/min; Est GFR (African American) 134.5 ml/min; Est GFR (Non-African American) 116.1 ml/min; Magnesium 1.7 mg/dl (1.7-2.4); Potassium 3.5 mmol/L (3.5-5.1)
[2021-11-03] MEDS: LORATADINE 10 MG TAB PO SCH (10:03)
--- NOTE | 2021-11-03 17:56 | Hospitalist Progress Note ---
Date of Service November 03, 2021 Assessment & Plan (1) Meningitis: Plan: Acute meningitis, discussed with infectious disease; suspected viral, unable to rule out lyme therefore will continue ceftriaxone pending western blot confirmation testing. Still awaiting today - No leukocytosis.. Temperature 37.7 on admission - CXR: No acute findings - CTA/P: 1. No bowel obstruction or pneumoperitoneum.2. Normal appendix.3. Mild wall thickening throughout the majority of the colon is likely secondary to partial distention. A mild nonspecific colitis is considered less likely.4. Urinary bladder wall thickening with partial distention. Correlate with urinalysis.5. Nonspecific- -mild mediastinal and bilateral hilar lymphadenopathy. - CThead: No acute intracranial abnormality Hemoglobin normal No electrolyte abnormalities LP performed in ER. Total protein elevated to 102, white blood cell count elevated to 67, PCR panel and Lyme test is equivocal LP culture negative COVID negative Received Rocephin, Decadron, Toradol, vancomycin in ER - suspected worse headache due to acyclovir (known side effect of this medication) - now resolved - HIV and RPR negative. Still awaiting Anaplasma serum DNA PCR and [place] CSF COVID exposure - Negative on admit, son is positive - PUI. Needs 5 days of isolation then retesting on 11/04/21 for removal of precautions - family unable to visit hospital for 21 days Denies other chronic medical problems DVT prophylaxis: SCD, low risk Diet: Regular Disposition: stable for downgrade to med/surg CODE STATUS: Full code. Patient would like her boyfriend Johan contacted first in the case of an emergency. Updated boyfriend over the phone today (2) Cystitis: Plan: Ruled out. No suprapubic pain or urinary symptoms. Urine culture pending but suspect asymptomatic bacteriuria or contaminated sample. Admission and Anticipated Discharge Date Admission Date: October 31, 2021 Subjective Headache from yesterday resolved. No neck pain. Whooshing feeling pressure in both ears. usually occurs when the pressure changes. Lasted for 30 minutes. No fever or chills. Review of Systems Review of Systems: All systems reviewed & are unremarkable except as noted in Subjective Physical Exam Constitutional: WD/WN, vitals as above ENMT: external ear and nose normal, oropharynx normal Respiratory: normal respiratory effort, lungs clear to auscultation Cardiovascular: RRR, no murmur, no edema Gastrointestinal (Abdomen): normal bowel sounds, soft, nontender, no hepatosplenomegaly Musculoskeletal: no cyanosis or clubbing, extremities motor strength 5/5 Skin: no rashes, warm and dry Neurologic: moves all extremities and awake; no focal motor deficits and not confused Speech / Cognition: normal speech Motor/Sensory: no tremor and no sensory deficit Psychiatric: A+Ox3, euthymic affect Genitourinary: no CVA tenderness Results & Data Results & Data ([facility]) Vital Signs (Past 12 Hours) Vital Signs Temp Pulse Resp BP Pulse Ox O2 Del Method O2 Del Method 11/03/21 16:00 Room Air 11/03/21 11:00 36.9 C 65 18 106/65 98 Room Air 11/03/21 06:46 36.9 C 60 16 101/66 96 Room Air PG Care Time/CCT Total # of Minutes Spent Total Time Spent with Patient: Total time spent is greater than 50% in coordination of care (as documented) at patient's floor/unit and/or counseling patient: Coding Level of Care Code 25009 Subseq Hosp Care Lvl 2 Diagnoses Meningitis G03.9 Cystitis N30.90
[2021-11-04] MEDS: cefTRIAXone SODIUM 2,000 MG in DEXTROSE 5% 50 ML IV SCH ×2 (02:40→14:08)
[2021-11-04] MEDS: LORATADINE 10 MG TAB PO SCH (10:03)
[2021-11-04 14:50] LABS: Appearance Urine Clear (Clear); Bilirubin Urine Negative (Negative); Blood Urine Negative (Negative); Color Urine Yellow; Glucose Urine UA Negative (Negative); Ketones Urine Negative (Negative); Leukocyte Esterase Urine Negative (Negative); Nitrite Urine Negative (Negative); Protein Urine Negative (Negative); Specific Gravity Urine 1.005 (1.000-1.030); Urobilinogen Urine Negative (Negative); pH Urine 7.5 (4.5-7.5)
--- NOTE | 2021-11-04 18:44 | Hospitalist Progress Note ---
Date of Service November 04, 2021 Assessment & Plan (1) Meningitis: Plan: Acute meningitis, discussed with infectious disease; suspected viral, unable to rule out lyme therefore will continue ceftriaxone pending western blot confirmation testing. No current symptoms. Awaiting lyme western blot. - No leukocytosis.. Temperature 37.7 on admission - CXR: No acute findings - CTA/P: 1. No bowel obstruction or pneumoperitoneum.2. Normal appendix.3. Mild wall thickening throughout the majority of the colon is likely secondary to partial distention. A mild nonspecific colitis is considered less likely.4. Urinary bladder wall thickening with partial distention. Correlate with urinalysis.5. Nonspecific- -mild mediastinal and bilateral hilar lymphadenopathy. - CThead: No acute intracranial abnormality Hemoglobin normal No electrolyte abnormalities LP performed in ER. Total protein elevated to 102, white blood cell count elevated to 67, PCR panel and Lyme test is equivocal LP culture negative COVID negative Received Rocephin, Decadron, Toradol, vancomycin in ER - suspected worse headache due to acyclovir (known side effect of this medication) - now resolved - HIV and RPR negative. Awaiting Anaplasma serum DNA PCR, [facility] CSF and [place] PCR CSF COVID exposure - 2nd COVID test negative. Isolation precautions removed. Denies other chronic medical problems DVT prophylaxis: SCD, low risk Diet: Regular Disposition: stable for downgrade to med/surg CODE STATUS: Full code. Patient would like her boyfriend Johan contacted first in the case of an emergency. Updated boyfriend over the phone today (2) Cystitis: Plan: Ruled out. No suprapubic pain or urinary symptoms. Urine culture pending but suspect asymptomatic bacteriuria or contaminated sample. Admission and Anticipated Discharge Date Admission Date: October 31, 2021 Subjective No acute events overnight. No current symptoms. Headache and arm tingling resolved. Off isolation after 2nd COVID test came back negative. Awaiting lyme western blot at this time. Review of Systems Review of Systems: All systems reviewed & are unremarkable except as noted in Subjective Physical Exam Constitutional: WD/WN, vitals as above Respiratory: normal respiratory effort, lungs clear to auscultation Cardiovascular: RRR, no murmur, no edema Musculoskeletal: no cyanosis or clubbing, extremities motor strength 5/5 Skin: no rashes, warm and dry Neurologic: moves all extremities and awake; no focal motor deficits and not confused Speech / Cognition: normal speech Motor/Sensory: no tremor and no sensory deficit Psychiatric: A+Ox3, euthymic affect Results & Data Results & Data ([facility]) Vital Signs (Past 12 Hours) Vital Signs Temp Pulse Resp BP Pulse Ox 11/04/21 17:00 36.6 C 67 18 119/69 97 11/04/21 12:33 36.7 C 79 18 138/79 97 11/04/21 12:00 36.9 C 71 18 124/69 97 PG Care Time/CCT Total # of Minutes Spent Total Time Spent with Patient: Total time spent is greater than 50% in coordination of care (as documented) at patient's floor/unit and/or counseling patient: Coding Level of Care Code 06694 Subseq Hosp Care Lvl 1 Diagnoses Meningitis G03.9 Cystitis N30.90
[2021-11-05] MEDS: cefTRIAXone SODIUM 2,000 MG in DEXTROSE 5% 50 ML IV SCH ×2 (03:02→14:30)
[2021-11-05] MEDS: LORATADINE 10 MG TAB PO SCH (07:55)
--- NOTE | 2021-11-05 14:36 | Discharge Summary ---
Date of Service November 05, 2021 Admission HPI Per Admitting Provider Roseanne Preston is a 31-year-old female with no past medical history who presents to the ER with 5 days of sweats, headache, vomiting, dizziness, and photosensitive headache. LP has elevated protein and white blood cell count consistent with meningitis, glucose is normal. 5-6 days. Feeling generally poor. Sweats, headache, vomiting, decreased appetite, light sensitivity, and no energy. Headache if in the front, sides, and behind her eyes and has been 10/10 the last two fevers. +Fevers, chills. no sweats. No chest pain, no chest pressure, no shortness of breath, no cough. Does have a history of cold sores of the mouth, never been on an antiviral medicine before but isn't sure. Denies focal neurologic symptoms, focal weakness, numbness/tingling and sensory change. Feels very tired and would like to close her eyes and go back to sleep. No tick bites to her knowledge. Some mosquito bites outside her home. No rashes. Her son tested positive for COVID at home 1 week ago. Works at [employer] in [place], sees many customers who don't wear masks. Daily meds: claritin PRN Denies chronic medical problems Medical History: Reviewed Medications: Reviewed Surgical History: Reviewed Allergies: Reviewed. Augmentin and PCN, nausea/vomiting and throat swellin ga sa child. Social History: Smokes cigarettes, 1 pack lasts 1 day with her boyfriend sharing in the last year. rare social beer or glass of wine. Code Status: Full Code. Surrogate DM woud be boyfriend jeyson per patient. Principal Diagnosis Aseptic meningitis (suspected viral, possible lyme) Discharge Exam Constitutional WD/WN, vitals as above Neck trachea midline, no thyromegaly Respiratory normal respiratory effort, lungs clear to auscultation Cardiovascular RRR, no murmur, no edema Gastrointestinal (Abdomen) normal bowel sounds, soft, nontender, no hepatosplenomegaly Musculoskeletal no cyanosis or clubbing, extremities motor strength 5/5 Skin no rashes, warm and dry Neurologic moves all extremities and awake; no focal motor deficits and not confused Speech / Cognition: normal speech Motor/Sensory: no tremor and no sensory deficit Cranial Nerves: normal facial strength Psychiatric A+Ox3, euthymic affect Discharge Data Allergies Allergy/AdvReac Type Severity Reaction Status Date / Time pollen extracts Allergy Mild Congested Verified 10/31/21 15:59 acyclovir Allergy Headache Verified 11/02/21 22:18 Consultations 10/31/21 15:12 ED Decision to Admit Stat 11/01/21 16:12 Consult Infectious Diseases Routine Ordered Studies 10/31/21 11:42 CT head/brain wo con Stat Impression: No acute intracranial abnormality. 10/31/21 11:43 CT Abd and Pelvis [CT abd pelvis IV con only] Stat IMPRESSION: 1. No bowel obstruction or pneumoperitoneum. 2. Normal appendix. 3. Mild wall thickening throughout the majority of the colon is likely secondary to partial distention. A mild nonspecific colitis is considered less likely. 4. Urinary bladder wall thickening with partial distention. Correlate with urinalysis. 5. Nonspecific mild mediastinal and bilateral hilar lymphadenopathy. Hospital Course (1) Meningitis: Roseanne Preston is a 31 year old male admitted to [facility] from October 31 - 2021 due to headache, vomiting, dizziness and photosensitivity. She was diagnosed with aseptic meningitis on lumbar puncture. Biofire PCR was negative for multiple viruses. However most likely this is a virus just not on our PCR test. Lyme IgM was equivocal therefore on advice of infectious disease we continued to treat for lyme meningitis pending western blot analysis with intravenous ceftriaxone. Given her improvement and she is now asymptomatic for 48 hours will discharge on doxycycline pending results of lyme western blot analysis. On discharge awaiting; lyme IgG/M western blot, Anaplasma serum DNA PCR, VDRL CSF (serum RPR negative) and west Nile PCR CSF (2) Cystitis: Total Time Total Time Spent Total Time Spent (In Minutes): 35 Discharge Plan Discharge Items Patient Disposition: Home - Self-Care Reason For Visit: MENINGITIS SUSPECT VIRAL Discharge Diagnosis: Aseptic meningitis (suspected viral, possible lyme) Activity: Resume your previous activity Non-emergency contact: Primary Care Provider Call non-emergency contact if: you have any medication questions and your symptoms worsen Follow-up/Referrals: Roderick Mercado MD [Primary Care Provider] - 11/13/21 9:45 am Diet: Regular Addtl Attending Provider Instructions: You were admitted to [facility] from October 31 - 2021 due to headache, vomiting, dizziness and photosensitivity. You were diagnosed with aseptic meningitis on lumbar puncture. Biofire PCR was negative for multiple viruses. However most likely this is a virus not on our PCR test. Lyme IgM was equivocal therefore on advice of infectious disease we continued to treat for lyme meningitis pending western blot analysis with intravenous ceftriaxone. Given your improvement will discharge you with doxycycline pending results of lyme western blot analysis. Cerebrospinal fluid analysis for west nile virus, VDRL (test for syphilis, notable serum test for this was negative) and serum anaplasma PCR test are also still outstanding on discharge and you will be called if any of these are positive. Pending Studies at Discharge: Yes (Anaplasmosis PCR, CSF VDRL, west nile virus, lyme western blot) Stand-Alone Forms: [facility], Work/School Release, Smoking Cessation Medications and DC Order Prescriptions: New doxycycline monohydrate 100 mg tablet 100 mg PO BID 9 Days Qty: 18 0RF Continued loratadine [Claritin] 10 mg Tablet 10 mg PO DAILY Discharge Orders: Discharge Order (Routine); Ordered 11/05/21 Ordered By: Teodoro Wilburn Admission Data Admit Date/Time: 10/31/21 15:50 Attending Provider: Teodoro Wilburn Admit Provider: Yves Mills Primary Care Provider: Roderick Mercdao Other Providers: Yves Mills ; Michael Steele ; iMguel Ontiveros ; Elvis Preston I. ; Carlos Lowe II ; Griselda Rojas ; Chiki Campbell ; Nehemias York ; Diana Batres Other Interventions: Discharge Summary Assessment (RN) Last Done: 11/05/21 14:36 Coding Level of Care Code D/C DAY MANAGEMENT >30 MINS Diagnoses Meningitis G03.9 Cystitis N30.90
[2021-11-05 14:52] LABS: 18KDIGG Band NON-REACTIVE; 23KDIGG Band NON-REACTIVE; 23KDIGM Band NON-REACTIVE; 28KDIGG Band NON-REACTIVE; 30KDIGG Band NON-REACTIVE; 39KDIGG Band NON-REACTIVE; 39KDIGM Band REACTIVE; 41KDIGG Band REACTIVE; 41KDIGM Band NON-REACTIVE; 45KDIGG Band NON-REACTIVE; 58KDIGG Band NON-REACTIVE; 66KDIGG Band NON-REACTIVE; 93KDIGG Band NON-REACTIVE; Lyme Antibodies, WB IgG NEGATIVE (NEGATIVE); Lyme Antibodies, WB IgM NEGATIVE (NEGATIVE)
[2021-11-06 18:17] LABS: VDRL Qualitative CSF Nonreactive (Nonreactive); West Nile Virus, PCR, CSF Not Detected (Not Detected)
== END 2021-11-05 15:19 | disposition home or self-care (01) | DRG 869 ==
LOC: ED 11:01 → 2S 15:50 → SUATTDRO 15:50 → 2S 16:29